=== PATIENT | female | born 1965 | race Caucasian/White ===

== ENCOUNTER → 2021-01-21 | Outpatient (CLI) | payer MEDICARE ==
[~2021-01-21] MED LIST: AMIT25TA PO; ASCO100018 PO; CALC500T14 PO; CARI350T PO; CELE200C PO; CHOL10003 PO; CYCL10TA50; DIAZ10TA PO; ELET40TA PO; FENT1PAT76 TD; GABA100C PO; HYDR-3248 PO; IBUP200T64 PO; METH750T87 PO; MULT-449 PO; OXYC-380 PO; PREG150C PO; PROP10TA16 PO; SUMA100T3 PO; SUMA20SP; TOPI100T8 PO; ZOLP10TA PO
[2021-01-21 11:57] LABS: MICROSCOPIC AUTO
[2021-01-21 12:00] LABS: MEAN CORPUSCULAR HEMOGLOBIN 31.3 pg (27.0-34.8); MEAN CORPUSCULAR HGB CONC 33.1 g/dL (32.4-35.8); MEAN PLATELET VOLUME 10.8 fL (7.4-10.4); PLATELET COUNT 227 x10^3/uL (130-400); RED BLOOD COUNT 4.57 x10^6/uL (3.82-5.3)
[2021-01-21 12:09] LABS: INTERNATIONAL NORMALIZED RATIO 0.99 (0.93-1.1); PROTHROMBIN TIME 10.6 Seconds (9.6-11.5)
[2021-01-21 12:21] LABS: MD YES
[2021-01-21 12:23] LABS: BASOS#(MANUAL) 0.05 x10^3/uL (0-0.1); BASOS% (MANUAL) 1 % (0-1); EOS#(MANUAL) 0.05 x10^3/uL (0.0-0.4); EOS% (MANUAL) 1 % (1-7); LYMPH#(MANUAL) 2.34 x10^3/uL (1-3.4); LYMPHS% (MANUAL) 45 % (22-44); MONOS#(MANUAL) 0.47 x10^3/uL (0.3-2.7); MONOS% (MANUAL) 9 % (2-9); REACTIVE LYMPHS # (MANUAL) 0.57 x10^3/uL (0-0); REACTIVE LYMPHS % (MANUAL) 11 % (0-0); SEG#(MANUAL) 1.72 x10^3/uL (1.8-6.8); SEGS% (MANUAL) 33 % (42-75)
[2021-01-21 12:25] LABS: <PLATELET ESTIMATE> ADEQUATE; <RBC MORPHOLOGY> NORMAL; LARGE PLATELETS 1+
[2021-01-21 12:33] LABS: HCT (SEDRATE) 43.2 % (34.6-47.8)
[2021-01-21 12:41] LABS: ALBUMIN 3.9 g/dL (3.4-5.0); ANION GAP 3 mmol/L (5-15); CALCIUM 8.6 mg/dL (8.5-10.1); CHLORIDE 107 mmol/L (98-107)
[2021-01-21 12:45] LABS: ALANINE AMINOTRANSFERASE 27 U/L (12-78); ALKALINE PHOSPHATASE 65 U/L (45-117); BILIRUBIN,TOTAL 0.3 mg/dL (0.2-1.0); CREATININE 0.85 mg/dL (0.55-1.02); TOTAL PROTEIN 6.8 g/dL (6.4-8.2)
== END | disposition home or self-care (01) ==
LOC: STAR 09:42
PROVIDERS: ATTEND Orthopaedic Surgery Orthopaedic Surgery of the Spine
DX: Z01.812 Encounter for preprocedural laboratory examination (principal); M54.16 Radiculopathy, lumbar region; M48.061 Spinal stenosis, lumbar region without neurogenic claudication; Z20.822 Contact with and (suspected) exposure to COVID-19
CPT/HCPCS: 80053; 80074; 81001; 85025; 85610; 85651; 85730; 87086; 87806; U0003; U0005; G0475

== ENCOUNTER 2021-01-26 05:42 | Inpatient (IN) | payer MEDICARE ==
[~2021-01-26] VITALS: Ht 162.6 cm; Wt 66.9 kg
[2021-01-26 06:13] VITALS: BP 127/84
[2021-01-26] MEDS ORDERED: LACTATED RINGERS 1,000 ML IV SCH (06:30)
[2021-01-26] MEDS ORDERED: CHLORHEXIDINE 15 ML UDC PO ONE (06:30)
[2021-01-26] MEDS ORDERED: LORA10TA75 PO (06:32)
[2021-01-26] MEDS ORDERED: VANCOMYCIN 1,000 MG ONE (07:14)
[2021-01-26] MEDS ORDERED: GENTAMICIN 80 MG/2 ML ONE (07:14)
[2021-01-26] MEDS ORDERED: BUPIVACAINE/PF 0.5% ONE (07:14)
[2021-01-26] MEDS ORDERED: FENTANYL PF 100 MCG/2ML ONE ×3 (07:14→13:35)
[2021-01-26] MEDS ORDERED: morphine SULFATE/PF 0.5 MG/ML, 10ML ONE (07:14)
[2021-01-26] MEDS ORDERED: LIDOCAINE/PF 1%, 30ML ONE (07:14)
[2021-01-26] MEDS ORDERED: EPINEPHRINE 1 MG/ML, 1ML ONE (07:15)
[2021-01-26] MEDS ORDERED: BACITRACIN 50,000 UNIT ONE (07:15)
[2021-01-26] MEDS ORDERED: SCOPOLAMINE 1MG PATCH TD ONE (07:18)
[2021-01-26] MEDS ORDERED: FENTANYL PF 250 MCG/5ML ONE (07:25)
[2021-01-26] MEDS ORDERED: MIDAZOLAM 1 MG/ML, 2ML ONE (07:27)
[2021-01-26] MEDS ORDERED: PROPOFOL 200 ML ONE (07:31)
[2021-01-26] MEDS ORDERED: ALBUTEROL SULFATE 2.5 MG/3 ML NPPB PRN (08:30)
[2021-01-26] MEDS ORDERED: FENTANYL PF 100 MCG/2ML IV PRN (08:30)
[2021-01-26] MEDS ORDERED: KETOROLAC 30 MG/1 ML IV PRN (08:30)
[2021-01-26] MEDS ORDERED: LABETALOL 5MG/ML, 20ML IV PRN ×2 (08:30→15:30)
[2021-01-26] MEDS ORDERED: ACETAMINOPHEN 325 MG TABLET PO PRN (08:30)
[2021-01-26] MEDS ORDERED: MEPERIDINE/PF 25MG/0.5ML IVPush PRN (08:30)
[2021-01-26] MEDS ORDERED: PROMETHAZINE 25 MG/ML, 1ML IV PRN (08:30)
[2021-01-26] MEDS ORDERED: HYDROmorphone 2 MG/ML, 1ML IVPush PRN (08:30)
[2021-01-26] MEDS ORDERED: hydrALAzine 20 MG/ML, 1ML IV PRN (08:30)
[2021-01-26] MEDS ORDERED: DIAZEPAM 5 MG/ML, 2ML IVPush PRN (08:30)
[2021-01-26] MEDS ORDERED: OXYcodone 5 MG/5 ML ORAL.SOL UDC PO PRN (08:30)
[2021-01-26] MEDS ORDERED: PROPOFOL 100 ML ONE (09:52)
[2021-01-26] MEDS ORDERED: NEOSTIGMINE 1 MG/ML, 10ML ONE (11:05)
[2021-01-26] MEDS ORDERED: SUCCINYLCHOLINE 20 MG/ML, 10ML ONE (11:05)
[2021-01-26] MEDS ORDERED: ROCURONIUM 10MG/ML,5ML ONE (11:05)
[2021-01-26] MEDS ORDERED: GLYCOPYRROLATE 0.2MG/1ML, 5ML ONE (11:05)
[2021-01-26] MEDS ORDERED: DEXAMETHASONE 4 MG/ML, 1ML ONE (11:05)
[2021-01-26] MEDS ORDERED: ONDANSETRON 2MG/ML, 2ML ONE (11:05)
[2021-01-26] MEDS ORDERED: CEFAZOLIN 1,000 MG ONE (11:05)
[2021-01-26] MEDS ORDERED: PROPOFOL 10 MG/ML, 20ML ONE (11:05)
[2021-01-26] MEDS ORDERED: ACETAMINOPHEN 650 MG/20.3 ML UDC ONE (13:35)
[2021-01-26] MEDS ORDERED: OXYcodone 5 MG/5 ML ORAL.SOL UDC ONE (13:35)
[2021-01-26] MEDS ORDERED: DIAZEPAM 5 MG/ML, 2ML ONE (13:35)
[2021-01-26 14:35] VITALS: BP 97/58
[2021-01-26] MEDS ORDERED: ONDANSETRON 2MG/ML, 2ML IV PRN (15:30)
[2021-01-26] MEDS ORDERED: DIPHENHYDRAMINE 50 MG/ML, 1ML IVPush PRN (15:30)
[2021-01-26] MEDS: D5%-0.9% NACL+KCL 20MEQ 1,000 ML IV SCH ×2 (16:15→23:39)
[2021-01-26] MEDS: CEFAZOLIN PMX 1GM/50ML 50 ML IVPB SCH ×2 (16:15→23:39)
[2021-01-26 19:42] VITALS: BP 100/65
[2021-01-26] MEDS: DIAZEPAM 5 MG/ML, 2ML IV PRN (19:45)
[2021-01-26] MEDS: PREGABALIN 75 MG CAPSULE PO SCH (19:47)
[2021-01-26 22:54] VITALS: BP 98/65
[2021-01-27] MEDS: DIAZEPAM 5 MG/ML, 2ML IV PRN (01:36)
[2021-01-27 01:48] VITALS: BP 104/55
[2021-01-27] MEDS ORDERED: CEFAZOLIN PMX 1GM/50ML 50 ML IV ONE (07:30)
[2021-01-27] MEDS: PREGABALIN 75 MG CAPSULE PO SCH (07:44)
[2021-01-27] MEDS: OXYcodone IR 5MG TABLET PO PRN ×3 (07:48→15:34)
[2021-01-27] MEDS ORDERED: SENNA/DOCUSATE TABLET PO SCH (09:00)
[2021-01-27] MEDS: DIAZEPAM 5 MG TABLET PO PRN ×2 (09:56→15:34)
[2021-01-27 14:07] VITALS: BP 96/64
== END 2021-01-27 16:13 | disposition home or self-care (01) | DRG 520 ==
LOC: OUT 05:42 → 4NE 14:35 → OUT 23:30 → 4NE 23:30 → DCLOUNGE 01-27 16:06
PROVIDERS: ADMIT Orthopaedic Surgery Orthopaedic Surgery of the Spine; ATTEND Orthopaedic Surgery Orthopaedic Surgery of the Spine
PROC: 0SB20ZZ Excision of Lumbar Vertebral Disc, Open Approach (ICD-10-PCS; 2021-01-26)
PROC: 0SP004Z Removal of Internal Fixation Device from Lumbar Vertebral Joint, Open Approach (ICD-10-PCS; 2021-01-26)
PROC: 4A11X4G Monitoring of Peripheral Nervous Electrical Activity, Intraoperative, External Approach (ICD-10-PCS; 2021-01-26)
PROC: 0SH004Z Insertion of Internal Fixation Device into Lumbar Vertebral Joint, Open Approach (ICD-10-PCS; 2021-01-26)
PROC: 01NB0ZZ Release Lumbar Nerve, Open Approach (ICD-10-PCS; principal; 2021-01-26 07:30)
DX: M48.062 Spinal stenosis, lumbar region with neurogenic claudication (principal); M40.205 Unspecified kyphosis, thoracolumbar region; M51.16 Intervertebral disc disorders with radiculopathy, lumbar region; M53.2X6 Spinal instabilities, lumbar region; Z98.1 Arthrodesis status; D49.2 Neoplasm of unspecified behavior of bone, soft tissue, and skin; M71.38 Other bursal cyst, other site
CPT/HCPCS: 72100; 88304; 88311; 95938; 95941; C1776; G0378; J0171; J0690; J1100; J2250; J2270; J2274; J2405; J2704; J2710; J3010; J3360; J3370; C1751; J0330; J1580; J3480; J7120

== ENCOUNTER 2021-06-03 09:10 | Emergency (ER) | payer MEDICARE ==
[~2021-06-03] VITALS: Ht 157.5 cm; Wt 68.2 kg
[~2021-06-03 09:10] MED LIST changes: +LORA10TA75 PO; -OXYC-380 PO; +OXYC-501 PO
--- NOTE | 2021-06-03 09:29 | NUR ---
Pt walks from lobby to room 27 in [facility], changing to gown. Waiting for ERP evaluation.
--- NOTE | 2021-06-03 09:48 | NUR ---
Pt o2 sat 87-92%, denies SOB.
--- NOTE | 2021-06-03 10:00 | NUR ---
IV started, bloods drawn and held. Waiting for further orders.
--- NOTE | 2021-06-03 10:23 | NUR ---
EKG being done now, will send labs, PCXR.
[2021-06-03 10:34] LABS: BASOPHILS % (AUTO) 1 % (0-1); EOSINOPHILS % (AUTO) 0 % (1-7); LYMPHOCYTES % (AUTO) 22 % (22-44); MEAN CORPUSCULAR HEMOGLOBIN 30.9 pg (27.0-34.8); MEAN CORPUSCULAR HGB CONC 33.7 g/dL (32.4-35.8); MONOCYTES % (AUTO) 6 % (2-9); NEUTROPHILS % (AUTO) 71 % (42-75); PLATELET COUNT 155 x10^3/uL (130-400); RED CELL DISTRIBUTION WIDTH 13.3 % (9.6-15.2)
[2021-06-03 10:53] LABS: ALBUMIN 3.6 g/dL (3.4-5.0); ANION GAP 7 mmol/L (5-15); CALCIUM 7.9 mg/dL (8.5-10.1); CHLORIDE 105 mmol/L (98-107)
[2021-06-03 10:55] LABS: CREATININE 0.91 mg/dL (0.55-1.02)
--- NOTE | 2021-06-03 11:03 | NUR ---
Waiting for ERP re-evaluation. o2 sats 92-95%.
--- NOTE | 2021-06-03 11:20 | NUR ---
AIDET provided, VSS
[2021-06-03] MEDS ORDERED: CASIRIVIMAB 600 MG, IMDEVIMAB (REGN10987) 600 MG in SODIUM CHLORIDE 0.9% 250 ML IVPB ONE (12:30)
[2021-06-03] MEDS ORDERED: FILTER 0.22 MICRON IV ONE (12:30)
--- NOTE | 2021-06-03 12:36 | NUR ---
Waiting for Regeneron from pharmacy; pt in agreement with POC.
--- NOTE | 2021-06-03 13:05 | NUR ---
Regeneron infusing, vss. NO s/s rxn. On cont pulse ox, monitor. Will continue to monitor.
--- NOTE | 2021-06-03 13:38 | NUR ---
TASK RN: PT RESTING IN BED. VSS. EDGAR.
--- NOTE | 2021-06-03 14:41 | NUR ---
Pt off o2, sats 88-96% pt has no sob. Regeneron infused, VSS. Will discharge in 1 hour. Pt educated on covid care; pt has own o2 sats and will monitor at home. Pt verbalizes understanding of instruct.
[2021-06-03 14:45] VITALS: BP 134/81
== END 2021-06-03 15:27 | disposition home or self-care (01) ==
LOC: ED 09:31
DX: U07.1 COVID-19 (principal); J06.9 Acute upper respiratory infection, unspecified; B34.9 Viral infection, unspecified; R94.31 Abnormal electrocardiogram [ECG] [EKG]
CPT/HCPCS: 36415; 71045; 80048; 82040; 85025; 93005; 99285; M0243